=== PATIENT | male | born 1935 | race Caucasian/White ===

== ENCOUNTER 2023-05-23 09:31 | Outpatient (AMB) | payer MEDICARE, OTHER, SELFPAY ==
--- NOTE | 2023-05-23 09:40 | HO.NEPHOV_ITS ---
HPI HPI Comments History of Present Illness Details I had the privilege of seeing Sal in follow-up of his hypertension. He has not gained any weight. He has no proteinuria. He does not have any coronary artery disease, congestive heart failure, CVA, peripheral arterial disease, DREA, hypokalemia or hypercalcemia. He has no history of retinopathy. He does not take nonsteroidal anti-inflammatory medications on a regular basis. He feels well. His blood pressure at home has been at goal. No new complaints at the time of this office visit. [facility] Medical History (Updated 05/23/23 @ 09:59 by Joel Najera MD) Essential (primary) hypertension Surgical History (Updated 05/23/23 @ 09:38 by Libby Clifton MA) History of total knee arthroplasty History of cholecystectomy History of cataract surgery Family History (Updated 05/23/23 @ 09:39 by Libby Clifton MA) Mother Stroke Hypertension Father Cancer Sister Hypertension Brother Hypertension Cancer Social History (Updated 05/23/23 @ 09:44 by Libby Clifton MA) Alcohol intake: current Patient Tobacco Use Status: Former Tobacco user Vital Signs 05/23/23 09:41 Height 5 ft 4 in Weight 204 lb 6 oz BMI 35.1 BP 146/64 H Blood Pressure Location Rt brachial Position Sitting Pulse 55 Pulse Source Pulse Oximeter Pulse Oximetry (%) 98 Oxygen Delivery Method Room Air Physical Exam Vital Signs: Last Vital Signs Pulse 55 05/23/23 09:41 BP 146/64 H 05/23/23 09:41 Pulse Ox 98 05/23/23 09:41 Oxygen Delivery Method Room Air 05/23/23 09:41 BMI result Body Mass Index 35.1 Const General: comfortable and no acute distress Orientation/consciousness: patient oriented x3 HEENT Head: Yes normocephalic Mouth: Normal oral and palatal mucosa present Eyes EOM: EOMs intact bilaterally Neck Neck: Yes supple Resp Auscultation: clear to auscultation bilaterally Cardio Jugular venous distension: no JVD Rate: regular rate GI Palpation (GI): Soft to palpation Auscultation: normal bowel sounds General: Yes no CVA tenderness Back/Spine/Pelvis Back: no CVA tenderness Skin General skin exam: no rashes or lesions noted Neuro General: patient oriented x3 and moves all extremities Extrem General: Yes no pedal edema Assessment & Plan Assessment & Plan (1) Essential (primary) hypertension: Code(s): I10 - Essential (primary) hypertension Plan Sal has longstanding hypertension and is on multiple antihypertensive medications. His serum creatinine and serum potassium has been normal. He needs to cut back sodium in the diet and would benefit by losing some more weight. He needs to maintain good hydration. His serum calcium has been normal . He can continue on his current medication regimen for now. I plan to do Doppler of his renal arteries after next visit. He should minimize nonsteroidal anti-inflammatory intake. I did not make any medication changes today. All questions answered. Follow-up given. Orders: Orders Blood Urea Nitrogen Today I10 - Essential (primary) hypertension Creatinine Today I10 - Essential (primary) hypertension Electrolytes Today I10 - Essential (primary) hypertension Coding Level of Care Code Est Pt Level 3 (65675) Diagnoses Essential (primary) hypertension I10 Results Reviewed Nephrology Results: No Data to Display
[2023-05-23 09:41] VITALS: BP 146/64; PULSE 55; O2SAT 98; BMI 35.1
== END 2023-05-23 10:05 | disposition home or self-care (01) ==
PROVIDERS: PCP Internal Medicine; Visit Provider Internal Medicine Nephrology
DX: I10 Essential (primary) hypertension (principal)
CPT/HCPCS: 99213

== ENCOUNTER → 2023-05-23 09:31 | Outpatient (BNVA) | payer MEDICARE, OTHER, SELFPAY | PROVIDERS: PCP Internal Medicine; Visit Provider Internal Medicine Nephrology | DX: I10 Essential (primary) hypertension (principal) | CPT/HCPCS: 99212 ==

== ENCOUNTER 2023-08-15 07:14 | Outpatient (REF) | payer MEDICARE, OTHER, SELFPAY ==
[2023-08-15 12:07] LABS: Anion Gap 12 (12-20); Blood Urea Nitrogen 19 mg/dL (9-16); Carbon Dioxide 26 mmol/L (22-29); Chloride 107 mmol/L (96-108); Estimated Glomerular Filt Rate > 60; Potassium 3.6 mmol/L (3.3-5.1); Sodium 141 mmol/L (135-145)
== END 2023-08-15 07:15 | disposition home or self-care (01) ==
LOC: HO.HMGCLDS 07:14
PROVIDERS: PCP Internal Medicine; Visit Provider Internal Medicine Nephrology
DX: I10 Essential (primary) hypertension (principal)
CPT/HCPCS: 36415; 80051; 82565; 84520

== ENCOUNTER 2023-08-22 09:36 | Outpatient (AMB) | payer MEDICARE, OTHER, SELFPAY ==
[2023-08-22 09:39] VITALS: BP 128/60; PULSE 56; O2SAT 97; BMI 35.2
--- NOTE | 2023-08-22 09:39 | HO.NEPHOV ---
HPI HPI Comments History of Present Illness Details I had the privilege of seeing Sal in follow-up of his hypertension. He has no proteinuria. He does not have any coronary artery disease, congestive heart failure, CVA, peripheral arterial disease, DREA, hypokalemia or hypercalcemia. He has no history of retinopathy. He does not take nonsteroidal anti-inflammatory medications on a regular basis. He feels well. His blood pressure at home has been at goal. He has no new complaints at the time of this office visit. [facility] Medical History (Updated 05/23/23 @ 09:59 by Joel Najera MD) Essential (primary) hypertension Surgical History History of total knee arthroplasty History of cholecystectomy History of cataract surgery Family History Mother Stroke Hypertension Father Cancer Sister Hypertension Brother Hypertension Cancer Social History Alcohol intake: current Patient Tobacco Use Status: Former Tobacco user Vital Signs 08/22/23 09:39 Height 5 ft 4 in Weight 205 lb BMI 35.2 BP 128/60 Blood Pressure Location Lt brachial Position Sitting Pulse 56 Pulse Source Pulse Oximeter Pulse Oximetry (%) 97 Oxygen Delivery Method Room Air Physical Exam Vital Signs: Last Vital Signs Pulse 56 08/22/23 09:39 BP 148/60 H 08/22/23 09:39 Pulse Ox 97 08/22/23 09:39 Oxygen Delivery Method Room Air 08/22/23 09:39 BMI result Body Mass Index 35.2 Const General: comfortable and no acute distress Orientation/consciousness: patient oriented x3 HEENT Head: Yes normocephalic Mouth: Normal oral and palatal mucosa present Eyes EOM: EOMs intact bilaterally Neck Neck: Yes supple Resp Auscultation: clear to auscultation bilaterally Cardio Jugular venous distension: no JVD Rate: regular rate GI Palpation (GI): Soft to palpation Auscultation: normal bowel sounds General: Yes no CVA tenderness Back/Spine/Pelvis Back: no CVA tenderness Skin General skin exam: no rashes or lesions noted Neuro General: patient oriented x3 and moves all extremities Extrem General: Yes no pedal edema Assessment & Plan Assessment & Plan (1) Essential (primary) hypertension: Code(s): I10 - Essential (primary) hypertension Plan Sal has longstanding hypertension and is on multiple antihypertensive medications. His serum creatinine and serum potassium has been normal. He needs to cut back sodium in the diet and would benefit by losing some more weight. He needs to maintain good hydration. His serum calcium has been normal . He can continue on his current medication regimen for now. I plan to do Doppler of his renal arteries with time. He should minimize nonsteroidal anti-inflammatory intake. I did not make any medication changes today. All questions answered. Follow-up given Orders: Orders Blood Urea Nitrogen Today I10 - Essential (primary) hypertension Electrolytes Today I10 - Essential (primary) hypertension Creatinine Today I10 - Essential (primary) hypertension Coding Level of Care Code Est Pt Level 3 (03352) Diagnoses Essential (primary) hypertension I10 Results Reviewed Nephrology Results: Sodium 141 mmol/L (135-145) 08/15/23 Potassium 3.6 mmol/L (3.3-5.1) 08/15/23 Chloride 107 mmol/L (96-108) 08/15/23 Carbon Dioxide 26 mmol/L (22-29) 08/15/23 BUN 19 mg/dL (9-16) H 08/15/23 Creatinine 0.99 mg/dL (0.5-1.4) 08/15/23
== END 2023-08-22 10:04 | disposition home or self-care (01) ==
PROVIDERS: PCP Internal Medicine; Visit Provider Internal Medicine Nephrology
DX: I10 Essential (primary) hypertension (principal)
CPT/HCPCS: 99213

== ENCOUNTER → 2023-08-22 09:36 | Outpatient (BNVA) | payer MEDICARE, OTHER, SELFPAY | PROVIDERS: PCP Internal Medicine; Visit Provider Internal Medicine Nephrology | DX: I10 Essential (primary) hypertension (principal) | CPT/HCPCS: 99212 ==

== ENCOUNTER 2023-12-13 06:01 | Outpatient (REF) | payer MEDICARE, OTHER, SELFPAY ==
[2023-12-13 10:33] LABS: Anion Gap 13 (12-20); Blood Urea Nitrogen 22 mg/dL (9-16); Carbon Dioxide 23 mmol/L (22-29); Chloride 107 mmol/L (96-108); Estimated Glomerular Filt Rate > 60; Potassium 3.7 mmol/L (3.3-5.1); Sodium 139 mmol/L (135-145)
== END 2023-12-13 06:02 | disposition home or self-care (01) ==
LOC: HO.HMGCLDS 06:01
PROVIDERS: PCP Internal Medicine; Visit Provider Internal Medicine Nephrology
DX: I10 Essential (primary) hypertension (principal)
CPT/HCPCS: 36415; 80051; 82565; 84520

== ENCOUNTER 2023-12-26 09:39 | Outpatient (AMB) | payer MEDICARE, OTHER, SELFPAY ==
[2023-12-26 09:56] VITALS: BP 134/60; PULSE 61; O2SAT 97; BMI 36.3
--- NOTE | 2023-12-26 09:56 | HO.NEPHOV_ITS ---
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 He has no proteinuria. He does not have any coronary artery disease, congestive heart failure, CVA, peripheral arterial disease, DREA, hypokalemia or hypercalcemia. He has no history of retinopathy. He does not take nonsteroidal anti- inflammatory medications on a regular basis. He feels well. His blood pressure at home has been at goal. He has gained some weight. He has been started on Flomax. He has no new complaints at the time of this office visit. [facility] Medical History (Updated 05/23/23 @ 09:59 by Joel Najera MD) Essential (primary) hypertension Surgical History History of total knee arthroplasty History of cholecystectomy History of cataract surgery Family History Mother Stroke Hypertension Father Cancer Sister Hypertension Brother Hypertension Cancer Social History Alcohol intake: current Patient Tobacco Use Status: Former Tobacco user Physical Exam Vital Signs: Last Vital Signs Pulse 61 12/26/23 09:56 BP 134/60 12/26/23 09:56 Pulse Ox 97 12/26/23 09:56 Oxygen Delivery Method Room Air 12/26/23 09:56 BMI result Body Mass Index 36.3 Const General: comfortable and no acute distress Orientation/consciousness: patient oriented x3 HEENT Head: Yes normocephalic Mouth: Normal oral and palatal mucosa present Eyes EOM: EOMs intact bilaterally Neck Neck: Yes supple Resp Auscultation: clear to auscultation bilaterally Cardio Jugular venous distension: no JVD Rate: regular rate GI Palpation (GI): Soft to palpation Auscultation: normal bowel sounds General: Yes no CVA tenderness Back/Spine/Pelvis Back: no CVA tenderness Skin General skin exam: no rashes or lesions noted Neuro General: patient oriented x3 and moves all extremities Extrem General: Yes no pedal edema Results Reviewed Nephrology Results: Sodium 139 mmol/L (135-145) 12/13/23 Potassium 3.7 mmol/L (3.3-5.1) 12/13/23 Chloride 107 mmol/L (96-108) 12/13/23 Carbon Dioxide 23 mmol/L (22-29) 12/13/23 BUN 22 mg/dL (9-16) H 12/13/23 Creatinine 1.03 mg/dL (0.5-1.4) 12/13/23 Assessment & Plan Assessment & Plan (1) Essential (primary) hypertension: Code(s): I10 - Essential (primary) hypertension Category: Medical Plan Sal has longstanding hypertension and is on multiple antihypertensive medications. His serum creatinine and serum potassium has been normal. He needs to cut back sodium in the diet and would benefit by losing some more weight. He needs to maintain good hydration. His serum calcium has been normal . He can continue on his current medication regimen for now. He should minimize nonsteroidal anti-inflammatory intake. I did not make any medication changes today. All questions answered. Follow-up given Orders: Orders Creatinine 6 Months I10 - Essential (primary) hypertension Electrolytes 6 Months I10 - Essential (primary) hypertension Blood Urea Nitrogen 6 Months I10 - Essential (primary) hypertension Calcium 6 Months I10 - Essential (primary) hypertension Coding Level of Care Code Est Pt Level 4 (16542) Diagnoses Essential (primary) hypertension I10
== END 2023-12-26 10:24 | disposition home or self-care (01) ==
PROVIDERS: PCP Internal Medicine; Visit Provider Internal Medicine Nephrology
DX: I10 Essential (primary) hypertension (principal)
CPT/HCPCS: 99214

== ENCOUNTER → 2023-12-26 09:39 | Outpatient (BNVA) | payer MEDICARE, OTHER, SELFPAY | PROVIDERS: PCP Internal Medicine; Visit Provider Internal Medicine Nephrology | DX: I10 Essential (primary) hypertension (principal); Z79.899 Other long term (current) drug therapy | CPT/HCPCS: 99212 ==

== ENCOUNTER 2024-06-17 07:53 | Outpatient (REF) | payer MEDICARE, OTHER, SELFPAY ==
[2024-06-17 10:17] LABS: Anion Gap 10 (12-20); Blood Urea Nitrogen 23 mg/dL (9-16); Calcium 9.2 mg/dL (8.4-10.2); Carbon Dioxide 27 mmol/L (22-29); Chloride 107 mmol/L (96-108); Estimated Glomerular Filt Rate > 60; Sodium 140 mmol/L (135-145)
== END 2024-06-17 07:54 | disposition home or self-care (01) ==
LOC: HO.HMGCLDS 07:53
PROVIDERS: PCP Internal Medicine; Visit Provider Internal Medicine Nephrology
DX: I10 Essential (primary) hypertension (principal)
CPT/HCPCS: 36415; 80051; 82310; 82565; 84520

== ENCOUNTER 2024-07-09 09:21 | Outpatient (AMB) | payer MEDICARE, OTHER, SELFPAY ==
--- NOTE | 2024-07-09 09:31 | HO.NEPHOV ---
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 He has no proteinuria. He does not have any coronary artery disease, congestive heart failure, CVA, peripheral arterial disease, DREA, hypokalemia or hypercalcemia. He has no history of retinopathy. He does not take nonsteroidal anti-inflammatory medications on a regular basis. He feels well. His blood pressure at home has been at goal. He has gained some weight. He is tolerating Flomax well. He has no new complaints at the time of this office visit. [facility] Medical History (Updated 05/23/23 @ 09:59 by Joel Najera MD) Essential (primary) hypertension Surgical History History of total knee arthroplasty History of cholecystectomy History of cataract surgery Family History Mother Stroke Hypertension Father Cancer Sister Hypertension Brother Hypertension Cancer Social History Alcohol intake: current Patient Tobacco Use Status: Former Tobacco user Review of Systems Const All systems reviewed & are unremarkable except as noted in HPI and below Physical Exam Vital Signs: Last Vital Signs Pulse 59 07/09/24 09:35 BP 120/70 07/09/24 09:35 Pulse Ox 98 07/09/24 09:35 Oxygen Delivery Method Room Air 07/09/24 09:35 BMI result Body Mass Index 36.1 Const General: comfortable and no acute distress Orientation/consciousness: patient oriented x3 HEENT Head: Yes normocephalic Mouth: Normal oral and palatal mucosa present Eyes EOM: EOMs intact bilaterally Neck Neck: Yes supple Resp Auscultation: clear to auscultation bilaterally Cardio Jugular venous distension: no JVD Rate: regular rate GI Palpation (GI): Soft to palpation Auscultation: normal bowel sounds General: Yes no CVA tenderness Back/Spine/Pelvis Back: no CVA tenderness Skin General skin exam: no rashes or lesions noted Neuro General: patient oriented x3 and moves all extremities Extrem General: Yes no pedal edema Results Reviewed Nephrology Results: Sodium 140 mmol/L (135-145) 06/17/24 Potassium 4.0 mmol/L (3.3-5.1) 06/17/24 Chloride 107 mmol/L (96-108) 06/17/24 Carbon Dioxide 27 mmol/L (22-29) 06/17/24 BUN 23 mg/dL (9-16) H 06/17/24 Creatinine 1.14 mg/dL (0.5-1.4) 06/17/24 Calcium 9.2 mg/dL (8.4-10.2) 06/17/24 Assessment & Plan Assessment & Plan (1) Essential (primary) hypertension: Code(s): I10 - Essential (primary) hypertension Category: Medical Plan Sal has longstanding hypertension and is on multiple antihypertensive medications. His serum creatinine and serum potassium has been stable. He needs to cut back sodium in the diet and would benefit by losing some more weight. He needs to maintain good hydration. His serum calcium has been normal . He can continue on his current medication regimen for now. He should minimize nonsteroidal anti-inflammatory intake. I did not make any medication changes today. All questions answered. Follow-up given Orders: Orders Creatinine 6 Months I10 - Essential (primary) hypertension Blood Urea Nitrogen 6 Months I10 - Essential (primary) hypertension Electrolytes 6 Months I10 - Essential (primary) hypertension Calcium 6 Months I10 - Essential (primary) hypertension Coding Level of Care Code Est Pt Level 4 (51704) Diagnoses Essential (primary) hypertension I10
[2024-07-09 09:35] VITALS: BP 120/70; PULSE 59; O2SAT 98; BMI 36.1
--- OUTSIDE RECORDS SUMMARY | 2024-07-09 09:52 | XMS_ITS | Clinical Summary ---
Author Organization [facility] Address [address] [place] [address] Care Team Providers Care Playground Attendant Name Role Phone Jeferson Ray MD Primary Care Provider [phone] Allergies No known active allergies Medications Medication Sig Dispensed Refills Start Date End Date Status losartan 50 MG TABS 2 tablet, hydrochlorothiazide 25 MG TABS 1 tablet Take 1 tablet by mouth daily. 0 Active finasteride (PROSCAR) 5 MG tablet Take 5 mg by mouth daily. 0 Active Verapamil HCl ER 300 MG CP24 Take 300 mg by mouth daily. 0 Active Calcium Carb-Cholecalciferol (CALCIUM + D3) 600-200 MG-UNIT TABS Take 600 mg by mouth daily. 0 Active Multiple Vitamins-Minerals (MULTI COMPLETE PO) Take by mouth daily. 0 Active aspirin EC 81 MG tablet Take 81 mg by mouth daily. 0 Active Active Problems Problem Noted Date Diagnosed Date Follicular non-Hodgkin's lymphoma of skin 2016 Hypertension 11/09/2016 Family History Medical History Relation Name Comments Cancer Brother Hypertension Brother Cancer Father Hypertension Mother Cancer Sister Relation Name Status Comments Brother Alive of lung ca ncer Father lung cancer Mother Sister Alive breast cancer Social History Tobacco Use Types Packs/Day Years Used Date Smoking Tobacco: Former Smokeless Tobacco: Never Comments:tabacco abuse Alcohol Use Standard Drinks/Week Comments Yes 1 (1 standard drink = 0.6 oz pur e alcohol) Sex and Gender Information Value Date Recorded Sex Assigned at Not on file Gender Identity Not on file Sexual Orientation Not on file Last Filed Vital Signs Vital Sign Reading Time Taken Comments Blood Pressure 152/61 10/20/2017 9:23 AM EDT Pulse 82 10/20/2017 9:23 AM EDT Temperature - - Respiratory Rate - - Oxygen Saturation - - Inhaled Oxygen Concentration - - Weight 88.9 kg (196 lb) 10/20/2017 9:23 AM EDT Height 158.8 cm (5' 2.5 ) 10/20/2017 9:23 AM EDT Body Mass Index 35.28 10/20/2017 9:23 AM EDT Plan of Treatment Health Maintenance Due Date Last Done Comments COVID-19 Vaccine (#1) 08/05/1940 Pneumococcal Vaccine (1 of 2 - PCV) 1940 Depression Screening 1946 Preventative Health Evaluation 1952 DTap / Tdap / Td (1 - Tdap) 1953 Shingrix-Zoster Vaccine (1 of 2) 1953 Fall Risk Assessment 08/05/1999 RSV Adult > 60+ Yrs or Pregn ant (1 - 1-dose 75+ series) 2009 Influenza Vaccine (#1) 2024 Hepatitis B Vaccines Aged Out No long er eligible based on patient's age to complete this topic RSV Ped < 20 months Aged Out No longe r eligible based on patient's age to complete this topic Care Teams Playground Attendant Relationship Specialty Start Date End Date Jeferson Ray MD PCP - General Internal Medicine 11/11/16
--- OUTSIDE RECORDS SUMMARY | 2024-07-09 09:52 | XMS_ITS | Clinical Summary ---
Author Organization [facility] Address [address] [facility] [address] [place] [address] Phone Care Team Providers Care Mysql Database Administrator Name Role Phone Jeferson Ray MD Primary Care Provider [phone] Allergies No known active allergies Medications amLODIPine (NORVASC) 10 MG tablet Take 1 tablet by mouth 1 (one) time each day 11/29/2021 Active aspirin (ST JOSE) 81 MG EC tablet Take 81 mg by mouth 1 (one) time each day Active hydroCHLOROthia zide 25 MG tablet Take 1 tablet by mouth 1 (one) time each day 01/12/2022 Active tamsulosin (FLOMAX) 0.4 MG 24 hr capsule Take 1 capsule by mouth 1 (one) time each day 12/20/2021 Active losartan (COZAAR) 100 MG tablet Take 1 tablet by mouth 1 (one) time each day 12/22/2021 Active finasteride (PROSCAR) 5 MG tablet Take 5 mg by mouth 1 (one) time each day Do not crush, chew, or split. Active cyanocobalamin (VITAMIN B-12) 1000 MCG tablet Take 1,000 mcg by mouth 1 (one) time each day Active carvedilol (Coreg) 25 MG tablet Take 1 tablet (25 mg total) by mouth in the morning and 1 tablet (25 mg total) in the evening. Take with meals. 180 tablet 3 08/11/2022 Active Active Problems Problem Noted Date Diagnosed Date Follicular non-Hodgkin's lymphoma of skin 2016 Hypertension 11/09/2016 Family History Medical History Relation Comments Cancer Brother Hypertension Brother Cancer Father Hypertension Mother Stroke Mother Hypertension Sister Relation Status Comments Brother Father Mother Sister Social History Tobacco Use Types Packs/Day Years Used Date Smoking Tobacco: Former Cigarettes Smokeless Tobacco: Never Tobacco Cessation:Counseling Given: Not Answered Alcohol Use Standard Drinks/Week Comments Yes 0 (1 standard drink = 0.6 oz pur e alcohol) Sex and Gender Information Value Date Recorded Sex Assigned at Not on file Legal Sex Male 9:44 AM EDT Gender Identity Not on file Sexual Orientation Not on file Last Filed Vital Signs Vital Sign Reading Time Taken Comments Blood Pressure 120/60 11/17/2022 9:14 AM EDT Pulse 52 11/17/2022 9:14 AM EDT Temperature - - Respiratory Rate - - Oxygen Saturation 99% 08/11/2022 2:06 PM EST Inhaled Oxygen Concentration - - Weight 94.6 kg (208 lb 9.6 oz) 11/17/2022 9:14 A M EDT Height 162.6 cm (5' 4 ) 08/11/2022 2:06 PM EST Body Mass Index 35.81 08/11/2022 2:06 PM EST Plan of Treatment Health Maintenance Due Date Last Done Comments Pneumococcal Vaccine: 65+ Ye ars (1 of 2 - PCV) 1940 Influenza Vaccine (#1) 2024 Hepatitis B Vaccine Aged Out No longe r eligible based on patient's age to complete this topic Insurance MEDICARE [facility] MEDICARE [facility] Care Teams Mysql Database Administrator Relationship Specialty Start Date End Date Jeferson Ray MD [address] [place] [address] PCP - General Internal Medicine 11/03/21
== END 2024-07-09 09:59 | disposition home or self-care (01) ==
PROVIDERS: PCP Internal Medicine; Visit Provider Internal Medicine Nephrology
DX: I10 Essential (primary) hypertension (principal)
CPT/HCPCS: 99214